=== PATIENT | female | born 1970 | race Caucasian/White ===

== ENCOUNTER 2021-02-12 22:21 | Emergency (ER) | payer BC, SELFPAY ==
[2021-02-12 22:25] VITALS: BP 102/62; PULSE 95; RESP 18; TEMP 36.6; O2SAT 97
--- NOTE | 2021-02-13 01:19 | PC.NURSE ---
Pt yelling in the waiting room regarding her wait time and her pain. RN apologized for the wait time that she would be next to get a room unfortunately Rn could not give a time frame. Pt very upset she came in by ambulance and she has been waiting in the waiting room in pain.
[2021-02-13 01:44] VITALS: BP 101/76; PULSE 81; RESP 18; O2SAT 97
[2021-02-13] MEDS: HYDROcodone/acetaminophen (*CRX) 5-325 MG TABLET 1 TAB PO (02:34)
[2021-02-13] MEDS: CYCLOBENZAPRINE HCL 10 MG TABLET PO (02:35)
[2021-02-13] MEDS: ONDANSETRON HCL ODT 4 MG TABLET PO (02:35)
[2021-02-13] MEDS: KETOROLAC (*BKC) 60 MG/2 ML VIAL IM (02:36)
--- NOTE | 2021-02-13 02:59 | ED.BACK ---
HPI - Back Pain/Injury General Chief Complaint: Back Pain/Injury Stated Complaint: lower back pain Time Seen by Provider: 02/13/21 01:39 Source: patient and RN notes reviewed Mode of arrival: ambulatory Limitations: no limitations History of Present Illness HPI Narrative: This is a 50 year old female who presents for evaluation of lower back pain. Her pain started 18 days ago when she was bending over. She was evaluated at an urgent care in [place] shortly after this and she was diagnosed with bulging disc. She states she had CT scan that showed this . She was prescribed Flexeril, steroids and pain reliever. She was doing better until 2 days ago. She has finished her Flexeril and steroids. She went to [facility] yesterday and she was prescribed Skelaxin. She has been taking this medication with out relief. She is also taking Tylenol for her pain. Her pain improves with warm bath and standing position. Her pain is located lower back and radiates into bilateral posterior leg. She denies numbness, tinging or weakness. She also denies abdominal pain or urinary symptoms such as dysuria, retention or incontinence. Related Data Allergies Allergy/AdvReac Type Severity Reaction Status Date / Time Cephalosporins Allergy Rash Verified 02/13/21 02:33 Review of Systems Review of Systems: All systems reviewed & are unremarkable except as noted in HPI and below PMFSH Past Medical History Medical History (Updated 02/13/21 @ 03:18 by Shima Malhotra MD) Lumbar radiculopathy Surgical History Surgical History (Updated 02/13/21 @ 03:03 by Shima Malhotra MD) No pertinent past surgical history Social History Social History (Updated 02/13/21 @ 03:03 by Shima Malhotra MD) Smoking status: Never smoker Exam Const: General: no acute distress and alert Orientation/consciousness: patient oriented x3 Eyes: EOM: EOMs intact bilaterally Chest: Chest palpation & inspection: normal inspection of the chest Resp: Effort & Inspection: normal respiratory effort and no retractions Auscultation: clear to auscultation bilaterally Cardio: Rate: regular rate Rhythm: regular rhythm Heart sounds: no murmurs GI: GI Palp: Yes Soft to palpation, No Tenderness to palpation present (GI) and No Guarding due to palpation present (GI) Auscultation: normal bowel sounds Back/Spine/Pelvis: Back: no CVA tenderness Thoracic/Lumbar Spine: thoraco-lumbar ROM normal and straight leg raise negative bilaterally Skin: General skin exam: normal color Rashes: no rashes Neuro: General: patient oriented x3, moves all extremities and CN's II-XI intact bilaterally Extrem: General: normal to inspection Psych: Mental Status: mental status grossly normal Affect: normal affect Course Reevaluation(s) Reevaluation #1: PAtient is sleeping. Symptoms sound like lumbar radiculopathy. She is awaiting appointment with pain specialist. Date: 02/13/21 Time: 03:17 Vital Signs Vital signs: Vital Signs Temperature 97.8 F 02/12/21 22:25 Pulse Rate 95 02/12/21 22:25 Respiratory Rate 18 02/12/21 22:25 Blood Pressure 102/62 02/12/21 22:25 Pulse Oximetry 97 02/12/21 22:25 Temperature 97.8 F 02/12/21 22:25 Pulse Rate 61 02/13/21 03:26 Respiratory Rate 18 02/13/21 03:26 Blood Pressure 98/64 L 02/13/21 03:26 Pulse Oximetry 98 02/13/21 03:26 Discharge Plan Discharge Clinical Impression: Lumbar radiculopathy Patient Disposition: Home, Self-Care Condition: Stable Instructions: Acute Low Back Pain (ED), Lumbar Radiculopathy (ED), Lower Back Exercises (ED) Additional Instructions: Please call your primary care physician or pain specialist to discuss your pain treatment. If you develop inability to urinate, abdominal pain, leg weakness, or numbness return to ER. Stop taking the other muscle relaxer. Prescriptions: New naproxen 500 mg tablet,delayed release (DR/EC) 500 mg PO BID PRN (Reason: p
[2021-02-13 03:26] VITALS: BP 98/64; PULSE 61; RESP 18; O2SAT 98
== END 2021-02-13 03:40 | disposition home or self-care (01) ==
PROVIDERS: Emergency Provider General Practice
DX: M54.16 Radiculopathy, lumbar region (principal)
CPT/HCPCS: 96372; 99283; A9270; J1885